=== PATIENT | female | born 1995 | race Caucasian/White ===

== ENCOUNTER 2024-11-02 11:04 | Emergency (ER) | payer BC, SELFPAY ==
[2024-11-02 11:27] VITALS: BP 117/73; PULSE 51; RESP 14; TEMP 36.8; O2SAT 100; BMI 23.6
[2024-11-02 11:46] VITALS: BP 141/84; PULSE 56; O2SAT 100
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
--- NOTE | 2024-11-02 11:49 | PC.NURSE ---
pt states taking two extra strength tylenol at 0900 this morning with no relief.
--- NOTE | 2024-11-02 12:08 | PC.NURSE ---
needing ua, this nurse asked pt for urine, pt states she just went pee, asking for water, Dr. Díaz aware and okayed pt to have water. call light within reach.
[2024-11-02 12:29] LABS: HCG Qualitative Urine. Negative (Negative)
[2024-11-02] MEDS: orphenadrine 30 mg/mL Inj 2 mL 60 MG IM (13:38)
[2024-11-02] MEDS: ketorolac 60 mg/2 mL INJ IM (13:39)
[2024-11-02 14:17] VITALS: BP 118/81; PULSE 49; O2SAT 97
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
== END 2024-11-02 14:18 | disposition home or self-care (01) ==
PROVIDERS: Emergency Provider Emergency Medicine
DX: S22.080A Wedge compression fracture of T11-T12 vertebra, initial encounter for closed fracture (principal); V89.2XXA Person injured in unspecified motor-vehicle accident, traffic, initial encounter
CPT/HCPCS: 72100; 81025; 96372; 99284; J1885; J2360